=== PATIENT | female | born 1985 | race Caucasian/White ===

== ENCOUNTER 2018-01-23 12:37 | Emergency (ER) | payer MEDICAID ==
[~2018-01-23] VITALS: Ht 152.4 cm; Wt 65.8 kg
[2018-01-23 12:57] VITALS: Ht 152.4 cm; Wt 65.8 kg
[2018-01-23 15:05] VITALS: BP 119/79
== END 2018-01-23 15:04 | disposition home or self-care (01) ==
LOC: ED 12:37
DX: B34.9 Viral infection, unspecified (principal)
CPT/HCPCS: 82962; J1885; J2550; J2765